=== PATIENT | male | born 1970 | race Caucasian/White ===

== ENCOUNTER 2021-02-09 14:55 | Emergency (ER) | payer OTHER ==
[~2021-02-09] VITALS: Ht 177.8 cm; Wt 70.5 kg
[2021-02-09 21:00] VITALS: BP 134/57
[2021-02-09] MEDS ORDERED: KETOROLAC TROMETHAMINE 30 MG/ML VIAL IM ONE (21:30)
== END 2021-02-09 21:49 | disposition home or self-care (01) ==
LOC: EMS 14:58
DX: G89.29 Other chronic pain (principal); M25.561 Pain in right knee
CPT/HCPCS: 29505; 96372; 99283; J1885